=== PATIENT | female | born 1985 | race Caucasian/White ===

== ENCOUNTER 2019-12-27 02:24 | Inpatient (IN) | payer OTHER ==
[~2019-12-27] VITALS: Ht 167.6 cm; Wt 88.0 kg
--- OUTSIDE RECORDS SUMMARY | ~2019-12-27 | XMS | Encounter Summary ---
Demographics + + + | Address | [address] | | | [place] [address] | + + + | Home Phone | | + + + | Preferred Language | Unknown | + + + | Marital Status | Unknown | + + + | Jainism Affiliation | Unknown | + + + | Race | Unknown | + + + | Ethnic Group | Unknown | + + + Author + + + | Author | [facility] | + + + | Organization | [facility] | + + + | Address | Unknown | + + + | Phone | Unavailable | + + + Care Team Providers + +------+ + | Care Multi Craft Maintenance Technician Name | Role | Phone | + +------+ + PCP | Unavailable | + +------+ + Encounter Details +--------+ + + + + | Date | Type | Department | Care Team | Description | +--------+ + + + + | 03/04/ | Abstract | Pediatric Urology | Amarilys Karan Aleksandar, | | | 2017 | | at [facility] [address] | [address] | | | | | [facility] | [address] | | | | | [facility] | [place], [place] | | | | | [facility], | [address] | | | | | [address] [place] [address] | [phone] | | | | | [place], [place] | | | | | | [address] | | | | | | [phone] | | | +--------+ + + + + Social History + +-------+ +--------+------+ | Tobacco Use | Types | Packs/Day | Years | Date | | | | | Used | | + +-------+ +--------+------+ | Never Assessed | | | | | + +-------+ +--------+------+ + + + | Sex Assigned at | Date Recorded | | | | + + + | Not on file | | + + + + + + + | Job Start Date | Occupation | Industry | + + + + | Not on file | Not on file | Not on file | + + + + + + + + | Travel History | Travel Start | Travel End | + + + + + + | No recent travel history available. | + + documented as of this encounter Plan of Treatment Not on filedocumented as of this encounter Visit Diagnoses Not on filedocumented in this encounter"
--- OUTSIDE RECORDS SUMMARY | ~2019-12-27 | XMS | Clinical Summary ---
Demographics + + + | Address | [address] | | | [place] [address] | + + + | Home Phone | | + + + | Preferred Language | Unknown | + + + | Marital Status | Unknown | + + + | Temple Affiliation | Unknown | + + + | Race | Unknown | + + + | Ethnic Group | Unknown | + + + Author + + + | Author | [facility] | + + + | Organization | [facility] | + + + | Address | Unknown | + + + | Phone | Unavailable | + + + Care Team Providers + +------+ + | Care Telephone Assembler Name | Role | Phone | + +------+ + PCP | Unavailable | + +------+ + Source Comments [facility] is fully live on both [facility] and [facility] InPatient.[facility] Allergies Not on File Medications Not on file Active Problems Not on file Social History + +-------+ +--------+------+ | Tobacco [...] recent travel history available. | + + Last Filed Vital Signs Not on file Plan of Treatment + + + + + | Health Maintenance | Due Date | Last Done | Comments | + + + + + | Influenza (Flu) | | | | | vaccination (#1) | 9 | | | + + + + + | Pneumococcal | Aged Out | | No longer eligible | | vaccination | | | based on patient's | | | | | age to complete this | | | | | topic | + + + + + Results Not on filefrom Last 3 Months"
[~2019-12-27 02:24] MED LIST: ACYCLOVIR400 MG PO; AZO1 EACH MISC; BACTRIM DS TAB1 EACH PO; SEROQUEL200 MG PO
--- NOTE | 2019-12-28 05:15 | PR ---
[facility] [address] [facility] [place], [place] [address] Signed PP Progress Notes Datetime Report Generated by CPN: 12/28/2019 05:15 SUBJECTIVE: [id number] Pain: Within Normal Limits Nausea/Vomiting: Denies Flatus: Yes Vital Signs: [id number] Vital Signs: Reviewed; Within Normal Limits Cardiovascular: Normal Respiratory: Normal Abdomen/Uterus: Normal Lochia: Normal Vulva/Perineum: Not Done Breasts: Not Done CVA Tenderness: Normal Extremities: Normal Incision: Not Applicable Progress: Normal Exam Comments: Fundus firm U-2 nontender IMPRESSION/PLAN/PROCEDURES: [id number] Impression: Normal Progression Plan: Discharge Progress Notes: Pt seen and examined. Doing well. Ambulating, voiding, and tolerating full diet. Pain and lochia minimal. well. No fevers/chills/other concerns. Baby Rh neg and rhogam not indicated. Desires dc home. Planning nexplanon pp contraception. Reviewed GDM and importance of pp glucose challenge. All questions answered. F/U 2 wks telemedicine and 6 wks pp exam. Signing Physician: Jadon Perdomo DO Copies: ~ *Electronically Signed* 12/28/19 0515 JADON PERDOMO DO PATIENT NAME: YESI PARIS PROGRESS NOTE DATE OF : 83 PHYSICIAN: JADON PERDOMO #: [id number] REPORT IS CONFIDENTIAL AND NOT TO BE RELEASED WITHOUT AUTHORIZATION
== END 2019-12-28 08:57 | disposition home or self-care (01) | DRG 807 ==
LOC: FBCO 02:24 → FBC 03:09
PROVIDERS: ADMIT Obstetrics & Gynecology
PROC: 10E0XZZ Delivery of Products of Conception, External Approach (ICD-10-PCS; principal; 2019-12-27)
PROC: 0KQM0ZZ Repair Perineum Muscle, Open Approach (ICD-10-PCS; 2019-12-27)
PROC: 0UQMXZZ Repair Vulva, External Approach (ICD-10-PCS; 2019-12-27)
PROC: 3E0S3BZ Introduction of Anesthetic Agent into Epidural Space, Percutaneous Approach (ICD-10-PCS; 2019-12-27)
PROC: 00HU33Z Insertion of Infusion Device into Spinal Canal, Percutaneous Approach (ICD-10-PCS; 2019-12-27)
DX: O24.424 Gestational diabetes mellitus in childbirth, insulin controlled (principal); Z37.0 Single live birth; Z3A.38 38 weeks gestation of pregnancy; O69.81X0 Labor and delivery complicated by cord around neck, without compression, not applicable or unspecified; O71.82 Other specified trauma to perineum and vulva; O70.1 Second degree perineal laceration during delivery; O99.334 Smoking (tobacco) complicating childbirth; F17.210 Nicotine dependence, cigarettes, uncomplicated
CPT/HCPCS: 01960; 36415; 85027; A9270; J2590; J2795; J3010; J7121

== ENCOUNTER 2024-02-22 06:00 | Day surgery (SDC) | payer OTHER ==
[2024-02-17 09:54] VITALS: BP 113/82
[~2024-02-22] VITALS: Ht 175.3 cm; Wt 79.5 kg
[~2024-02-22 06:00] MED LIST changes: +BENADRYL ALLERG50 MG PO; +BRINTELLIX10 MG PO; +CBD PO; +D3 DOTS50 MCG PO; +FISH OIL 1,001000 MG PO; +IBU400 MG PO; +LACTATED RINGER'S 1,000 ML IV SCH; +MAG GLYCINATE100 MG PO; +MULTI VITAMIN1 EACH PO
[2024-02-22 06:16] VITALS: BP 111/84
--- NOTE | 2024-02-22 06:35 | NUR ---
GLORIA FRIEND IS TO BE CALLED FOR RIDE HOME NO ONE WAITING. STATES SHES COMFORTABLE.
[2024-02-22] MEDS ORDERED: iopamidoL 30 ML VIAL ONE (06:45)
[2024-02-22] MEDS ORDERED: SODIUM CHLORIDE 0.9% 40 ML IV ONE (06:45)
[2024-02-22] MEDS ORDERED: SUCCINYLCHOLINE IN 0.9% NACL 200 MG/10 ML SYRINGE ONE (06:59)
[2024-02-22] MEDS ORDERED: propofoL 200 MG/20 ML VIAL ONE (06:59)
[2024-02-22] MEDS ORDERED: LIDOCAINE HCL 4% 5 ML AMP ONE (06:59)
[2024-02-22] MEDS ORDERED: LACTATED RINGER'S 1,000 ML IV ONE (06:59)
[2024-02-22] MEDS ORDERED: METOCLOPRAMIDE HCL 10 MG/2 ML SDV ONE (06:59)
[2024-02-22] MEDS ORDERED: DEXAMETHASONE SOD PHOS 4 MG/ML VIAL ONE (06:59)
[2024-02-22] MEDS ORDERED: SUGAMMADEX SODIUM 200 MG/2 ML ML ONE (06:59)
[2024-02-22] MEDS ORDERED: MIDAZOLAM HCL 2 MG/2 ML VIAL ONE (06:59)
[2024-02-22] MEDS ORDERED: FAMOTIDINE 20 MG/ 2 ML VIAL ONE (06:59)
[2024-02-22] MEDS ORDERED: fentaNYL citrate 100 MCG/2 ML VIAL ONE (06:59)
[2024-02-22] MEDS ORDERED: ROCURONIUM BROMIDE 50 MG/5 ML SYR ONE (06:59)
[2024-02-22] MEDS ORDERED: KETOROLAC TROMETHAMINE 30 MG/ML VIAL ONE (06:59)
[2024-02-22] MEDS ORDERED: ondansetron HCL 4 MG/2 ML VIAL ONE (06:59)
[2024-02-22] MEDS ORDERED: HEParin SOD (PORCINE) 5,000 UNIT/0.5 ML SYR SUB-Q SCH (07:00)
[2024-02-22] MEDS ORDERED: LIDOCAINE HCL 1% 5 ML SDV INJ ONE (07:00)
[2024-02-22] MEDS ORDERED: IBLOOD GLUCOSE TEST STRIP 1 EA TEST VI PRN ×2 (07:00→08:45)
[2024-02-22] MEDS ORDERED: CEFAZOLIN SODIUM 2 GM/20 ML SYR IV SCH (07:00)
--- NOTE | 2024-02-22 07:15 | NUR ---
BUNDLE WRAPPER IN TO TALK WITH PT.
--- NOTE | 2024-02-22 07:36 | NUR ---
VISITED DURING SPIRITUAL CARE ROUNDS. PT EXPRESSED CONFIDENCE IN CARE, HOPE FOR RELEIF FROM DISCOMFORT, ACCEPTANCE. BROOM BUILDER PROVIDED SUPPORTIVE PRESENCE, HOSPITALITY, PRAYER, FACILITATED INTERACTION WITH THERAPHY ANIMAL. PT EXPRESSED GRATITUDE.
[2024-02-22] MEDS ORDERED: dexmedeTOMIDine HCl 200 MCG/2 ML VIAL ONE (08:09)
[2024-02-22] MEDS ORDERED: METOCLOPRAMIDE HCL 10 MG/2 ML SDV IV PRN (08:45)
[2024-02-22] MEDS ORDERED: droPERidol 5 MG/2 ML VIAL IV PRN (08:45)
[2024-02-22] MEDS ORDERED: PROCHLORPERAZINE EDISYLATE 10 MG/2 ML VIAL IV PRN (08:45)
[2024-02-22] MEDS ORDERED: fentaNYL citrate 50 MCG/ML SDV IV PRN (08:45)
[2024-02-22] MEDS ORDERED: NALOXONE HCL 0.4 MG SYR IV PRN ×2 (08:45→09:15)
[2024-02-22] MEDS ORDERED: MORPHINE SULFATE 10 MG/ML VIAL IV PRN (08:45)
[2024-02-22] MEDS ORDERED: ondansetron HCL 4 MG/2 ML VIAL IV PRN (08:45)
[2024-02-22] MEDS ORDERED: SEVOFLURANE 250 ML BTL ONE (08:56)
--- NOTE | 2024-02-22 09:07 | NUR ---
02/22/24 0907 Sheets,Luz 0901 PT ARRIVED TO PACU ON 10L WITH ORAL AIRWAY AND CHIN LIFT USED TO MAINTAIN AIRWAY. RESP EVEN AND UNLABORED. PT ASLEEP AND NONAROUSABLE TO CHIN LIFT. 09 CHIN LIFT NO LONGER NEEDED TO MAINTAIN AIRWAY. PT HEAD TURNED TO LEFT SIDE.
[2024-02-22] MEDS ORDERED: IBUPROFEN600 MG PO (09:13)
[2024-02-22] MEDS ORDERED: OXYCODON-ACETA1 EAC2 PO (09:14)
[2024-02-22] MEDS ORDERED: ACETAMINOPHEN500 MG PO (09:14)
[2024-02-22] MEDS ORDERED: LACTATED RINGER'S 1,000 ML IV SCH (09:15)
[2024-02-22] MEDS ORDERED: ACETAMINOPHEN 500 MG TAB PO PRN (09:15)
[2024-02-22] MEDS ORDERED: IBUPROFEN 600 MG TAB PO PRN (09:15)
[2024-02-22] MEDS ORDERED: OXYCODONE/APAP 7.5/325 TAB PO PRN (09:15)
[2024-02-22 09:34] VITALS: BP 104/69
--- NOTE | 2024-02-22 09:41 | NUR ---
HAS CALL LIGHT ATE [facility] DRINKING WATER. RATES PAIN3/10 REQUESTED AND GIVEN PAINM RX.
[2024-02-22 10:25] VITALS: BP 103/62
--- NOTE | 2024-02-22 10:28 | NUR ---
PAIN 5/10 RELATED TO AIR MOVING TO SHOULDER NOT INCISIONS.
--- NOTE | 2024-02-22 14:56 | NUR ---
1110 PT AMB WELL. VOIDS 200MLS YELLOW URINE. READY TO GO HOME.
--- NOTE | 2024-02-22 16:46 | OR ---
[facility] [address] [place], [place] [address] Signed DATE OF OPERATION: 02/22/2024 SURGEON: Angeline Carbajal MD PREOPERATIVE DIAGNOSIS: Chronic calculous cholecystitis. POSTOPERATIVE DIAGNOSES: Chronic calculous cholecystitis with profound cholesterolosis; normal cholangiogram. PROCEDURES: 1. Laparoscopic cholecystectomy with intraoperative cholangiogram. 2. Surgeon-directed fluoroscopy. ANESTHESIA: General endotracheal, Angeline Melissa CRNA and local 10 mL of 0.25% Marcaine with epinephrine. INDICATION: This 38-year-old white woman is a patient of [facility] and began having right upper abdominal symptoms in September of this year. Evaluation included gallbladder ultrasound, which was performed February 09, 2024, confirming gallstones without evidence of acute cholecystitis and a reported 3 mm mobile echogenic structure of the gallbladder consistent with gallstones. She has symptoms typical of biliary colic and is likely to have chronic calculous cholecystitis. She is admitted at this time to undergo cholecystectomy preferred by a laparoscopic approach. She understands the risk of bleeding, infection, bile duct injury, need for open procedure, need for common duct exploration and other unforeseen complications including failure to cure her symptoms. Understanding that she wished to proceed. FINDINGS: The gallbladder was chronically inflamed. Cholangiogram showed no sign of intraductal abnormality and the liver appeared normal. The gallbladder once excised showed profound cholesterolosis and some adherent bits of stone debris. There was no sign of malignancy. DESCRIPTION OF PROCEDURE: The patient was brought to the operating room, given a general endotracheal anesthetic. Preoperative antibiotic Ancef was given. Sequential compression device stockings were used and heparin subcutaneously administered. The abdomen was prepped with Electronically Signed By: ANGELINE CARBAJAL MD 02/22/24 1646 PATIENT NAME: YESI PARIS OPERATIVE REPORT DATE OF : 83 REPORT #: [id number] PHYSICIAN: ANGELINE CARBAJAL MD PCP: SHALINI CARTER PAC REPORT IS CONFIDENTIAL AND NOT TO BE RELEASED WITHOUT AUTHORIZATION [facility] [address] [place], [place] [address] Signed chlorhexidine solution and draped sterilely. An infraumbilical incision was made and using an open Nadir cannula technique pneumoperitoneum was achieved to a level of 14 mmHg of carbon dioxide gas. Intra-abdominal inspection showed no sign of ascites or carcinomatosis. Three additional trocars were placed in their usual configuration in the subxiphoid, right midclavicular, and right anterior axillary line. Gallbladder was elevated cephalad and found to have adherent adhesions to it, which were taken down with blunt and sharp dissection. The gallbladder was elevated cephalad and retracted laterally and using blunt and electrocautery dissection was undertaken in the infundibulum, ultimately identifying the cystic arterial branch and the cystic duct itself. Once the critical view of safety was well achieved and anatomy quite obvious, a clip was applied across gallbladder cystic duct junction and a transverse choledochotomy made in the cystic duct. Using an Toribio type cholangiocatheter intraoperative cholangiography was undertaken showing free flow of contrast in biliary tree with prompt emptying into the duodenum. Short distance retrograde flow into the common hepatic duct was noted. The cystic duct inserted on the medial aspect of the common duct is noted. The catheter was removed. The cystic duct was triply clipped and divided. The gallbladder was dissected free in a retrograde fashion using electrocautery. Clips were applied to the cystic arterial branches as necessary. The gallbladder was extracted through the infraumbilical port site after removal from the subhepatic space, opened on the back table and found to have profound cholesterolosis and small bits of stones debris. There was no sign of malignancy. Irrigation was undertaken in the subhepatic space. Dissection was close to the gallbladder and a sub vesicle blood vessel was noted, which was intact without bleeding. The trocars were then removed without difficulty showing no sign of bleeding. The infraumbilical fascial incision was reapproximated with interrupted 3-0 Vicryl suture. 10 mL of 0.25% Marcaine with epinephrine was injected locally. The skin was closed with interrupted 3-0 Vicryl and Steri-Strips were applied. The patient was ultimately extubated and transferred to the recovery room in good condition having suffered no complications. Sponge, needle, and instrument counts reported as correct x3. MD RENETTA Carney/MODL /[id number] Electronically Signed By: ANGELINE CARBAJAL MD 02/22/24 1646 PATIENT NAME: YESI PARIS OPERATIVE REPORT DATE OF : 83 REPORT #: [id number] PHYSICIAN: ANGELINE CARBAJAL MD PCP: SHALINI CARTER PAC REPORT IS CONFIDENTIAL AND NOT TO BE RELEASED WITHOUT AUTHORIZATION [address] [address] Signed cc: Shalini Carter PA-C Copies: SHALINI CARTER ~ Electronically Signed By: ANGELINE CARBAJAL MD 02/22/24 1646 PATIENT NAME: YESI PARIS OPERATIVE REPORT DATE OF : 83 REPORT #: [id number] PHYSICIAN: ANGELINE CARBAJAL MD PCP: SHALINI CARTER REPORT IS CONFIDENTIAL AND NOT TO BE RELEASED WITHOUT AUTHORIZATION
--- NOTE | 2024-02-24 17:14 | PATH ---
[facility] [address] [facility] [place], [place] [address] Signed SPECIMEN(S): A GALLBLADDER SPECIMEN SOURCE: A. GALLBLADDER CLINICAL HISTORY: Cholecystitis with calculus. FINAL PATHOLOGIC DIAGNOSIS: Gallbladder, cholecystectomy: - Chronic cholecystitis. - Mucosal cholesterolosis. - Negative for calculi. JVR:sridhar MICROSCOPIC EXAMINATION: Histologic sections of all submitted blocks are examined by light microscopy. These findings, together with the gross examination, support the pathologic diagnosis. GROSS DESCRIPTION: The specimen, labeled and designated "Kim Lopez, gallbladder," is received in formalin and consists of: Specimen: Previously open gallbladder. Dimensions: 7.3 x 2.5 x 0.8 cm. Serosa: Green congested smooth and glistening. Cystic Duct: Unobstructed. Calculi: No gross identifiable calculi. Mucosa: Green and velvety with yellow flecking. Wall thickness: 0.3 cm. Lymph node: No pericystic lymph nodes are grossly identified. Additional: None. Dining Chair Seat Cushion Trimmer sections are submitted in (A1). RENETTA (under the direct supervision of a pathologist) The Gross Description was prepared using a voice recognition system. The report was reviewed for accuracy; however, sound-alike word errors, addition and/or deletions may occur. If there is any question about this report, please contact Client Services. PERFORMING LABORATORY: Technical component was performed by [employer], Destiny Garibay, PATIENT NAME: YESI LOPEZ PATHOLOGY DATE OF : 83 REPORT #: [id number] PHYSICIAN: MONICA PATHOLOGY PCP: МАРИНА CARTER PAC REPORT IS CONFIDENTIAL AND NOT TO BE RELEASED WITHOUT AUTHORIZATION [address] [place] [address] [place] [address] (CLIA# [id number]). Professional interpretation was performed by [facility], [address] [place] [id number] (CLIA#: [id number]). Diagnostician: David Jackman MD Pathologist Electronically Signed 02/24/2024 Copies: ~ PATIENT NAME: YESI LOPEZ PATHOLOGY DATE OF : 83 REPORT #: [id number] PHYSICIAN: MONICA PATHOLOGY PCP: МАРИНА CARTER PAC REPORT IS CONFIDENTIAL AND NOT TO BE RELEASED WITHOUT AUTHORIZATION
== END 2024-02-22 11:10 | disposition home or self-care (01) ==
LOC: DS 06:00
PROVIDERS: ATTEND Surgery
PROC: BF12YZZ Fluoroscopy of Gallbladder using Other Contrast (ICD-10-PCS; 2024-02-22)
PROC: 0FT44ZZ Resection of Gallbladder, Percutaneous Endoscopic Approach (ICD-10-PCS; principal; 2024-02-22 07:30)
DX: K81.1 Chronic cholecystitis (principal); F17.290 Nicotine dependence, other tobacco product, uncomplicated; F10.11 Alcohol abuse, in remission; Z79.899 Other long term (current) drug therapy
CPT/HCPCS: 00790; 74300; J0330; J0690; J1100; J1644; J1885; J2250; J2405; J2704; J2765; J3010; J3490; J7121; Q9967